=== PATIENT | female | born 1980 | race Caucasian/White ===

== ENCOUNTER 2022-01-22 16:48 | Observation (INO) ==
[2022-01-22] MEDS ORDERED: Naloxone 0.4 MG/ML INJ IVP PRN (19:30)
[2022-01-22] MEDS ORDERED: Ondansetron ODT 4 MG TAB.RAPDIS SL PRN (19:30)
[2022-01-22] MEDS ORDERED: Ipratropium/Albuterol Neb 3 ML IH PRN (20:53)
[2022-01-22] MEDS ORDERED: Dextrose 4 GM Chewable Tablets PO PRN ×2 (21:09)
[2022-01-22] MEDS ORDERED: D5% in Water 1,000 ML IVC PRN (21:09)
[2022-01-22] MEDS ORDERED: *HR* Dextrose 50 % in Water (Syg) 50 ML SYRINGE IVP PRN (21:09)
[2022-01-22] MEDS ORDERED: clonazePAM 0.5 MG TABLET PO PRN (21:11)
[2022-01-22] MEDS: 0.9 % Sodium Chloride 1,000 ML IVC SCH (21:40)
[2022-01-22] MEDS: *HR* Heparin 5,000 UNIT/ML VIAL SQ SCH (21:40)
[2022-01-22 21:51] LABS: Calcium 8.5 mg/dL (8.6-10.3); Potassium 4.4 mEq/L (3.5-5.1)
[2022-01-22] MEDS ORDERED: cloNIDine HCL 0.1 MG TABLET PO PRN (22:22)
[2022-01-22] MEDS: Insulin LISPRO 300 UNITS/3 ML VIAL SUBQ SCH (23:50)
[2022-01-22] MEDS: QUEtiapine Fumarate 25 MG TABLET PO SCH (23:50)
[2022-01-22] MEDS: Acetaminophen 325 MG TABLET PO PRN (23:50)
[2022-01-23 01:45] LABS: Hemoglobin 12.6 g/dL (11.5-15.4); Immature Granulocytes % 0.2 % (0-4)
[2022-01-23 01:47] LABS: Basophils % 0.4 %; Eosinophils # 0.1 K/mcL (0.0-0.6); Eosinophils % 2.7 %; Hematocrit 40.1 % (35.3-44.9); Immature Platelets 8.3 % (1.1-6.1); Lymphocytes # 1.8 K/mcL (0.6-4.6); Lymphocytes % 40.7 %; Mean Corpuscular HGB Conc 31.4 g/dL (31.6-35.5); Mean Corpuscular Hemoglobin 26.6 pg (28.0-33.3); Mean Corpuscular Volume 84.8 fL (83.0-100.0); Mean Platelet Volume 11.5 fL (9.4-12.4); Monocytes # 0.3 K/mcL (0.0-1.3); Monocytes % 5.6 %; Red Blood Count 4.73 M/mcL (3.82-4.97); Red Cell Distribution Width 12.3 % (11.5-14.5); Segmented Neutrophils % 50.4 %; White Blood Count 4.5 K/mcL (4.3-11.1)
[2022-01-23 01:49] LABS: Neutrophils # 2.3 K/mcL (1.6-8.9); Platelet Count 76 K/mcL (140-400)
[2022-01-23 01:57] LABS: Albumin 3.6 g/dL (3.5-5.7); Bilirubin,Direct 0.1 mg/dL (0.0-0.2); Bilirubin,Indirect 0.6 mg/dL (0.0-1.0); Bilirubin,Total 0.7 mg/dL (0.3-1.0); Globulin 3.7 g/dL (2.4-3.5); Total Protein 7.3 g/dL (6.4-8.9)
[2022-01-23 01:58] LABS: INR 1.1; Prothrombin Time 12.7 Seconds (9.4-12.1)
[2022-01-23 02:01] LABS: Calcium 8.3 mg/dL (8.6-10.3); Magnesium 1.2 mg/dL (1.6-2.6); Phosphorous 3.4 mg/dL (2.7-4.5); Potassium 3.9 mEq/L (3.5-5.1)
[2022-01-23 02:13] LABS: Thyroid Stimulating Hormone 2.682 mcIU/mL (0.340-5.600)
[2022-01-23 02:53] LABS: Estimated Average Glucose 275 mg/dl; Hemoglobin A1C 11.2 %
[2022-01-23] MEDS ORDERED: *HR* OxyCODONE Immed Rel 5 MG TABLET PO ONE (03:59)
[2022-01-23] MEDS ORDERED: Doxycycline 100 MG in 0.9 % Sodium Chloride Mini Bag 100 ML IVPB SCH (06:00)
[2022-01-23] MEDS: *HR* Heparin 5,000 UNIT/ML VIAL SQ SCH (06:15)
[2022-01-23] MEDS: 0.9 % Sodium Chloride 1,000 ML IVC SCH ×2 (06:18→12:40)
[2022-01-23] MEDS ORDERED: Insulin LISPRO 300 UNITS/3 ML VIAL SUBQ SCH ×3 (08:00→13:00)
[2022-01-23] MEDS: lamoTRIgine 100 MG TABLET PO SCH ×2 (08:56→20:50)
[2022-01-23] MEDS: hydrOXYzine pamoate 25 MG CAPSULE PO SCH ×3 (08:56→20:50)
[2022-01-23] MEDS: BuPROPion SR (12 HR) 150 MG TABLET PO SCH ×2 (08:56→20:50)
[2022-01-23] MEDS: Loratadine 10 MG TABLET PO SCH (08:56)
[2022-01-23] MEDS: Insulin DETEMIR 100 UNIT/ML X5UNITS SUBQ SCH ×2 (08:57→20:50)
[2022-01-23] MEDS: Insulin LISPRO 300 UNITS/3 ML VIAL SUBQ SCH ×3 (08:57→16:59)
[2022-01-23] MEDS: Cholecalciferol (D-3) 1,000 UNIT (25MCG) TABLET PO SCH ×2 (08:57→20:50)
[2022-01-23] MEDS: Acetaminophen 325 MG TABLET PO PRN (10:09)
[2022-01-23] MEDS ORDERED: cloNIDine HCL 0.1 MG TABLET PO PRN (11:02)
[2022-01-23] MEDS: *HR* HYDROcodone/Acet 5/325 mg TABLET PO PRN ×2 (12:40→17:08)
[2022-01-23] MEDS: Gabapentin 300 MG CAPSULE PO SCH ×2 (14:17→20:50)
[2022-01-23 15:49] LABS: Bilirubin,Urine Negative (Negative); Blood,Urine Small (Negative); Clarity,Urine Clear (Clear); Color,Urine Light-Yellow (Yellow); Glucose,Urine (UA) Normal (Normal); Hyaline Casts,Urine Few per lpf (None Seen); Ketones,Urine Negative (Negative); Leukocyte Esterase,Urine Negative (Negative); Nitrite,Urine Negative (Negative); PH,Urine 5.5 pH Units (5.0-8.0); Protein,Urine Trace mg/dL (Neg-Trace); RBC,Urine 0-3 per hpf (0-3); Specific Gravity,Urine 1.012 (1.010-1.025); Urobilinogen,Urine Normal (Normal); WBC,Urine 0-3 per hpf (0-3)
[2022-01-23 15:50] LABS: Amphetamine Screen,Urine Negative ng/mL (Cutoff=1000); Barbiturate Screen,Urine Negative ng/mL (Cutoff=200); Benzodiazepines Screen,Urine Negative ng/mL (Cutoff=200); Cannabinoid Screen,Urine Negative ng/mL (Cutoff = 50); Chloride,Urine 47 mEq/L; Cocaine Screen,Urine Negative ng/mL (Cutoff= 300); Opiate Screen,Urine Negative ng/mL (Cutoff=300); Phencyclidine Screen,Urine Negative ng/mL (Cutoff=25); Potassium,Urine 10.2 mEq/L; Sodium, Urine 54.8 mEq/L
[2022-01-23] MEDS ORDERED: cefTRIAXone 2,000 MG in 0.9 % Sodium Chloride 20 ML IVP SCH (16:00)
[2022-01-23] MEDS: QUEtiapine Fumarate 25 MG TABLET PO SCH (20:50)
[2022-01-23] MEDS ORDERED: cloNIDine HCL 0.1 MG TABLET PO SCH (21:00)
[2022-01-23] MEDS ORDERED: QUEtiapine Fumarate 25 MG TABLET PO SCH (21:00)
[2022-01-24] MEDS: 0.9 % Sodium Chloride 1,000 ML IVC SCH ×2 (00:27→05:56)
[2022-01-24] MEDS: *HR* HYDROcodone/Acet 5/325 mg TABLET PO PRN (05:57)
[2022-01-24 06:55] LABS: Basophils % 0.4 %; Eosinophils # 0.1 K/mcL (0.0-0.6); Eosinophils % 2.2 %; Hematocrit 36.1 % (35.3-44.9); Hemoglobin 11.5 g/dL (11.5-15.4); Immature Platelets 9.3 % (1.1-6.1); Lymphocytes # 1.1 K/mcL (0.6-4.6); Lymphocytes % 41.4 %; Mean Corpuscular HGB Conc 31.9 g/dL (31.6-35.5); Mean Corpuscular Hemoglobin 26.6 pg (28.0-33.3); Mean Corpuscular Volume 83.6 fL (83.0-100.0); Mean Platelet Volume 11.5 fL (9.4-12.4); Monocytes # 0.2 K/mcL (0.0-1.3); Monocytes % 7.5 %; Neutrophils # 1.3 K/mcL (1.6-8.9); Red Blood Count 4.32 M/mcL (3.82-4.97); Red Cell Distribution Width 12.2 % (11.5-14.5); Segmented Neutrophils % 48.5 %; White Blood Count 2.7 K/mcL (4.3-11.1)
[2022-01-24 06:56] LABS: Platelet Count 57 K/mcL (140-400)
[2022-01-24 07:00] LABS: Calcium 7.9 mg/dL (8.6-10.3); Magnesium 1.3 mg/dL (1.6-2.6); Potassium 4.7 mEq/L (3.5-5.1)
[2022-01-24 07:24] VITALS: PULSE 85; O2SAT 95
[2022-01-24 07:45] VITALS: BP 113/71; TEMP 98.2
[2022-01-24] MEDS: Insulin LISPRO 300 UNITS/3 ML VIAL SUBQ SCH (08:35)
[2022-01-24] MEDS: Insulin DETEMIR 100 UNIT/ML X5UNITS SUBQ SCH (08:40)
[2022-01-24] MEDS: BuPROPion SR (12 HR) 150 MG TABLET PO SCH (08:43)
[2022-01-24] MEDS: Cholecalciferol (D-3) 1,000 UNIT (25MCG) TABLET PO SCH (08:44)
[2022-01-24] MEDS: lamoTRIgine 100 MG TABLET PO SCH (08:44)
[2022-01-24] MEDS: Loratadine 10 MG TABLET PO SCH (08:44)
[2022-01-24] MEDS: hydrOXYzine pamoate 25 MG CAPSULE PO SCH (08:44)
[2022-01-24] MEDS: Gabapentin 300 MG CAPSULE PO SCH (08:44)
[2022-01-24] MEDS ORDERED: Magnesium Oxide 400 MG TABLET PO SCH (09:00)
== END 2022-01-24 11:50 | disposition home or self-care (01) ==
LOC: 2ANU → SUATTDRO 18:47
PROVIDERS: ADMIT Internal Medicine; ATTEND Pharmacist